=== PATIENT | male | born 1945 | race Caucasian/White ===

== ENCOUNTER → 2017-08-01 | Outpatient (CLI) | payer OTHER, MEDICAID | LOC: FLAB 14:36 | PROVIDERS: ATTEND Family Medicine | DX: M41.84 Other forms of scoliosis, thoracic region (principal); M41.86 Other forms of scoliosis, lumbar region ==

== ENCOUNTER → 2018-09-11 | Outpatient (CLI) | payer OTHER, MEDICAID | LOC: EMCIMAGING 10:35 ==